=== PATIENT | male | born 2000 | race Caucasian/White ===

== ENCOUNTER 2019-08-25 19:18 | Emergency (ER) | payer OTHER ==
--- NOTE | 2019-08-25 20:15 | EDM.PDOC ---
ED HPI GENERAL MEDICAL PROBLEM - General Chief Complaint: Genitourinary Problem Stated Complaint: TESTICULAR PAIN Time Seen by Provider: 08/25/19 20:05 Source of Information: Reports: Patient History Limitations: Reports: No Limitations - History of Present Illness INITIAL COMMENTS - FREE TEXT/NARRATIVE: onset of left testicle pain on Wednesday. Saw medical provider on Wednesday. US scrotum negative for torsion- probable epididymitis. Tested for GC and chlamydia and results are pending. Treated with shot ( Rocephin?) and PO abx (Azithro?). Today came to [place] and went walking around town. Now increased pain- moderate to severe. - Related Data Allergies Allergy/AdvReac Type Severity Reaction Status Date / Time clavulanic acid Allergy Hives Verified 08/25/19 19:44 Home Meds: Home Meds NK [No Known Home Meds] 08/25/19 [History] Past Medical History Genitourinary History: Reports: Other (See Below) Other Genitourinary History: testicular torsion at age 13 - Infectious Disease History Infectious Disease History: Reports: Chicken Pox - Past Surgical History Musculoskeletal Surgical History: Reports: Shoulder Surgery Social & Family History - Tobacco Use Smoking Status *Q: Never Smoker - Caffeine Use Caffeine Use: Reports: Coffee, Energy Drinks, Soda - Alcohol Use Days Per Week of Alcohol Use: 2 Number of Drinks Per Day: 2 Total Drinks Per Week: 4 - Recreational Drug Use Recreational Drug Use: No ED ROS GENERAL - Review of Systems Review Of Systems: See Below Constitutional: Reports: No Symptoms GI/Abdominal: Denies: Constipation, Diarrhea, Nausea, Vomiting : Denies: Discharge, Dysuria Musculoskeletal: Reports: No Symptoms Skin: Reports: No Symptoms ED EXAM, RENAL/ - Physical Exam Exam: See Below Exam Limited By: No Limitations General Appearance: Alert, WD/WN, No Apparent Distress (Male) Exam: No Hernia, Normal Inspection, Scrotum Tenderness (L). No: Rash , Scrotal Swelling, Scrotum Tenderness (R), Testicular Mass Course - Vital Signs Text/Narrative:: His ultrasound is negative for Torsion. He was sent home with doxycycline for 10 days. He will follow up if not improving. Last Recorded V/S: Last Vital Signs Temp 37.2 C 08/25/19 19:45 Pulse 74 08/25/19 19:45 Resp 16 08/25/19 19:45 BP 134/63 08/25/19 19:45 Pulse Ox 100 08/25/19 19:45 - Orders/Labs/Meds Orders: Active Orders 24 hr Category Date Time Status Scrotum and Contents [US] Stat Exams 08/25/19 20:10 Ordered Labs: Laboratory Tests 08/25/19 Range/Units 20:45 Urine Color Yellow (YELLOW) Urine Appearance Clear (CLEAR) Urine pH 6.0 (5.0-8.0) Ur Specific [place] 1.020 (1.008-1.030) Urine Protein Negative (NEGATIVE) mg/dL Urine Glucose (UA) Negative (NEGATIVE) mg/dL Urine Ketones Negative (NEGATIVE) mg/dL Urine Occult Blood Negative (NEGATIVE) Urine Nitrite Negative (NEGATIVE) Urine Bilirubin Negative (NEGATIVE) Urine Urobilinogen 0.2 (0.2-1.0) EU/dL Ur Leukocyte Esterase Negative (NEGATIVE) Urine RBC Not seen (0-5) Urine WBC Not seen (0-5) Ur Epithelial Cells Not seen Amorphous Sediment Not seen Urine Bacteria Not seen Urine Mucus Not seen Departure - Departure Time of Disposition: 21:30 Disposition: Home, Self-Care 01 Condition: Good Clinical Impression: Epididymitis - Discharge Information *PRESCRIPTION DRUG MONITORING PROGRAM REVIEWED*: Yes *COPY OF PRESCRIPTION DRUG MONITORING REPORT IN PATIENT DARCY: No Referrals: PCP,None [Primary Care Provider] - Forms: ED Department Discharge Additional Instructions: Rest and scrotal elevation. Follow up with your doctor next week. Sepsis Event Note - Evaluation Sepsis Screening Result: No Definite Risk - Focused Exam Vital Signs: Vital Signs Temp Pulse Resp BP Pulse Ox 08/25/19 19:45 37.2 C 74 16 134/63 100 08/25/19 19:40 37.2 C 74 16 134/63 100 Date Exam was Performed: 08/25/19 Time Exam was Performed: 21:30 - My Orders Last 24 Hours: My Active Orders 08/25/19 20:10 Scrotum and Contents [US] Stat - Assessment/Plan Last 24 Hours: My Active Orders 08/25/19 20:10 Scrotum and Contents [US] Stat
--- NOTE | 2019-08-25 22:06 | CRLUS ---
INDICATION: left testicle pain SCROTAL ULTRASOUND Multiple sonographic images of the scrotum were performed. The testes appear normal bilaterally, the right testis measuring 4.1 x 2.6 x 2.7cm and the left testis measuring 4.5 x 2.6 x 2.2cm. No intratesticular masses are seen. Intratesticular Doppler blood flow is demonstrated bilaterally. The epididymides are within normal limits. No significant hydroceles are identified. IMPRESSION: Normal scrotal ultrasound. ESTEVAN LAU MD [facility] Dictated by: Doron Lau MD @ 08/25/2019 22:06:03 (Electronically Signed)
== END 2019-08-25 22:48 | disposition home or self-care (01) ==
LOC: JP.ED 19:18
DX: N45.1 Epididymitis (principal); Z88.1 Allergy status to other antibiotic agents
CPT/HCPCS: 76870; 81001; 99284-25